=== PATIENT | female | born 1990 | race Two or more races ===

== ENCOUNTER 2020-08-16 11:04 | Outpatient (REF) | payer OTHER, SELFPAY | END 2020-08-16 11:05 | disposition home or self-care (01) | LOC: HO.LAB 11:04 | PROVIDERS: Visit Provider Internal Medicine | DX: Z20.828 Contact with and (suspected) exposure to other viral communicable diseases (principal) | CPT/HCPCS: U0003 ==

== ENCOUNTER 2020-09-16 08:52 | Outpatient (REF) | payer OTHER, SELFPAY | END 2020-09-16 08:53 | disposition home or self-care (01) | LOC: HO.LAB 08:52 | PROVIDERS: Visit Provider Internal Medicine | DX: Z20.828 Contact with and (suspected) exposure to other viral communicable diseases (principal) | CPT/HCPCS: C9803; U0003 ==

== ENCOUNTER 2021-01-15 08:47 | Outpatient (REF) | payer OTHER, SELFPAY ==
[2021-01-15 11:37] LABS: SARS COV2 PCR INHOUSE NEGATIVE (Negative)
== END 2021-01-15 08:48 | disposition home or self-care (01) ==
LOC: HO.LAB 08:47
PROVIDERS: Visit Provider Internal Medicine
DX: Z20.822 Contact with and (suspected) exposure to COVID-19 (principal)
CPT/HCPCS: C9803; U0003

== ENCOUNTER 2022-11-03 12:25 | Outpatient (REF) | payer OTHER, SELFPAY ==
[2022-11-03 12:58] LABS: COVID-19 Test Positive (Negative); IDNOW Serial# 16C4AD1C
== END 2022-11-03 12:26 | disposition home or self-care (01) ==
LOC: HO.LAB 12:25
PROVIDERS: Visit Provider Internal Medicine
DX: Z20.822 Contact with and (suspected) exposure to COVID-19 (principal)
CPT/HCPCS: 87635; C9803

== ENCOUNTER 2023-12-02 07:17 | Emergency (ER) | payer OTHER, MEDICAID, SELFPAY ==
--- NOTE | ~2023-12-02 | XR_ITS ---
EXAMINATION: XR KNEE, LEFT CLINICAL INFORMATION: Pain in left knee following fall COMPARISON: None available. TECHNIQUE: Four views of the left knee. FINDINGS: No fracture or joint effusion. Alignment is anatomic. Joint spaces are maintained. No abnormal soft tissue calcification. Is suprapatellar soft tissue swelling XR/XR knee LT 3V IMPRESSION: No fracture or joint effusion
[2023-12-02 07:21] VITALS: BP 148/96; PULSE 77; RESP 19; TEMP 36.6; O2SAT 100; BMI 29.1
--- NOTE | 2023-12-02 08:33 | ED.LOWEXIN ---
HPI - Extremity Injury (Lower) General Chief Complaint: Extremity Injury, Lower Stated Complaint: Fall - injury left knee Time Seen by Provider: 12/02/23 07:27 Source: patient and family ( father (legal guardian)) Mode of arrival: ambulatory Limitations: no limitations History of Present Illness HPI Narrative: 33-year-old female came in for evaluation of left knee pain. Patient sustained a fall last week in the bathroom started to complain left knee pain, patient was seen and evaluated for left knee and was diagnosed with cellulitis patient was started on Keflex, return for increased pain in the left knee. Patient is a wheelchair-bound ambulate with a walker and assistance only. No fever, no chills, no nausea, no vomiting overall patient feels normal except for left knee pain. Related Data Previous Rx's Medication Instructions Recorded doxycycline hyclate 100 mg tablet 100 mg PO BID #14 tabs 12/02/23 Allergies Allergy/AdvReac Type Severity Reaction Status Date / Time No Known Allergies Allergy Verified 12/02/23 07:21 Review of Systems Review of Systems: All other systems are reviewed and are negative Constitutional: Reports as per HPI and Reports no additional constitutional complaints Eyes: Reports as per HPI and Reports no additional eye complaints Reports system reviewed and no additional complaints, except as documented Cardiovascular: Reports as per HPI and Reports no additional cardiovascular complaints Respiratory: Reports as per HPI and Reports no additional respiratory complaints Gastrointestinal: Reports as per HPI and Reports no additional gastrointestinal complaints Genitourinary: Reports no additional female genitourinary complaints Musculoskeletal: Reports no additional musculoskeletal complaints Skin/Breast: Reports system reviewed and no additional complaints, except as docu Psychiatric: Reports no additional psychiatric complaints Endocrine: Reports no additional endocrine complaints Hematologic/Lymphatic: Reports no additional hematologic/lymphatic complaints Allergic/Immunologic: Reports no additional allergic/immunologic complaints Reports system reviewed and no additional complaints, except as documented and Reports Abnormal speech present [facility] Social History Social History Advance Directives: No Physical Exam Vital Signs: Vital Signs: Last Vital Signs Temp 98 F 12/02/23 07:21 Pulse 77 12/02/23 07:21 Resp 19 12/02/23 07:21 BP 148/96 H 12/02/23 07:21 Pulse Ox 100 12/02/23 07:21 O2 Del Method Room Air 12/02/23 07:21 BMI result Body Mass Index 29.1 Vital signs have been reviewed and appear to be correct. Blood pressure elevated. Heart rate normal. Respiratory rate normal. Temperature normal. Oxygen saturation normal. Appearance: Alert. Oriented X3. No acute distress. Head: Normal external exam. Normocephalic. Atraumatic. No Wasserman signs noted. No raccoon eyes noted Eyes: PERRLA. EOMI. Conjunctiva and sclera normal. Eyelids normal. ENT: TM's Normal. Pharynx normal. Uvula midline. Moist mucous membranes. No trismus noted. No drooling noted. No muffled voice noted. Neck: Normal inspection. Neck supple. FROM. No adenopathy. Thyroid Normal. No meningeal signs. No neck mass noted. CVS: Normal heart rate and rhythm. Heart sound normal. No murmurs noted. Pulses normal throughout. Respiratory: No respiratory distress. Painless inspiration. Breath sounds normal. No wheezes/rales/rhonchi noted. Chest nontender. No accessory muscle usage noted or decreased air movement noted. Abdomen: Soft and nontender. Bowel sounds normal in all 4 quadrants. No distention noted. No organomegaly noted. No visible injury noted. Back: No CVA tenderness. Full range of motion noted. Skin: Skin warm and dry. Normal skin color. Normal skin turgor. No rashes/lesions/lacerations noted. Extremities: Left knee: infrapatellar redness, hotness with tenderness to touch, no step-off, no deformity in the knee, full range of motion of the left knee, neurovascularly intact. Neuro: Oriented X 3. Cranial nerve exam: II-XII are grossly intact No motor deficit. No sensory deficit. Reflexes normal. Course Reevaluation(s) Reevaluation #1: Left knee cellulitis patient has been taking Keflex, normal white count with elevation of sed rate but patient do not meet criteria for SIRS, intra-articular infection is unlikely With a full range of motion of the left knee, will add doxycycline. Time: 09:43 Medical Decision Making Differential Diagnosis Differential Diagnoses: The differential diagnosis associated with the presentation includes ( Left knee cellulitis, intra-articular infection, sepsis.) Lab Data MDM Lab Attestation statement: I reviewed the patient's lab results. 02/15/24 08:40 Labs: Lab Results 12/02/23 Range/Units 08:40 WBC 8.4 (4.8-10.8) X10*3/uL RBC 4.53 (4.20-5.50) X10*6/uL Hgb 13.4 (12.0-16.0) g/dl Hct 39.5 (37.0-47.0) % MCV 87.2 (80.0-98.0) fL MCH 29.6 (27.0-33.0) pg MCHC 33.9 (31.0-35.0) g/dl RDW 13.2 (11.0-16.0) % Plt Count 238 (160-400) X10*3/uL MPV 11.9 (9.4-12.3) fL Immature Gran % (Auto) 0.4 (0.0-0.4) % Neut % (Auto) 69.5 (45-73) % Lymph % (Auto) 21.3 (20-40) % [place] % (Auto) 7.2 (2-11) % Eos % (Auto) 1.2 (0-4) % Baso % (Auto) 0.4 (0-2) % Lymph # (Auto) 1.8 (1.2-4.9) X10*3/uL [place] # (Auto) 0.6 (0.1-1.2) X10*3/uL Eos # (Auto) 0.1 (0.0-0.4) X10*3/uL Baso # (Auto) 0.0 (0.0-0.2) X10*3/uL Abs Immat Gran (auto) 0.03 (0.00-0.03) X10*3/uL Absolute Neuts (auto) 5.9 (2.0-8.3) x10*3/uL Absolute Nucleated RBC 0.000 (0.0-0.012) X10*3/uL Nucleated RBC % (auto) 0.0 (0.0-0.2) /100WBC ESR 63 H (0-20) MM/HR Independent Interpretation I performed an independent interpretation of an: Plain X-Ray ( left knee: No fracture or joint effusion.) Radiology Impression Discussion of test interpretation with radiology: I have reviewed the radiologist's reading. Discharge Plan Discharge Clinical Impression: Cellulitis of knee, left Patient Disposition: Home, Self-Care Instructions: Cellulitis (ED) Prescriptions: New doxycycline hyclate 100 mg tablet 100 mg PO BID Qty: 14 0RF Referrals: Po,Sangita Gomes MD [Primary Care Provider] -
[2023-12-02 08:43] LABS: MANUAL DIFF FLAG NO
[2023-12-02 08:47] LABS: Basophils Percent Auto 0.4 % (0-2); Eosinophils Absolute Auto 0.1 X10*3/uL (0.0-0.4); Eosinophils Percent Auto 1.2 % (0-4); Hematocrit 39.5 % (37.0-47.0); Hemoglobin 13.4 g/dl (12.0-16.0); Imm Gran Abs Auto 0.03 X10*3/uL (0.00-0.03); Imm Gran Pct Auto 0.4 % (0.0-0.4); Lymphocytes Absolute Auto 1.8 X10*3/uL (1.2-4.9); Lymphocytes Percent Auto 21.3 % (20-40); Mean Corpuscular HGB Conc 33.9 g/dl (31.0-35.0); Mean Corpuscular Hemoglobin 29.6 pg (27.0-33.0); Mean Corpuscular Volume 87.2 fL (80.0-98.0); Mean Platelet Volume 11.9 fL (9.4-12.3); Monocytes Absolute Auto 0.6 X10*3/uL (0.1-1.2); Monocytes Percent Auto 7.2 % (2-11); Neutrophils Absolute Auto 5.9 x10*3/uL (2.0-8.3); Neutrophils Percent Auto 69.5 % (45-73); Platelet Count 238 X10*3/uL (160-400); Red Blood Count 4.53 X10*6/uL (4.20-5.50); Red Cell Distribution Width 13.2 % (11.0-16.0); White Blood Count 8.4 X10*3/uL (4.8-10.8)
[2023-12-02 09:41] LABS: Erythrocyte Sedimentation Rate 63 MM/HR (0-20)
== END 2023-12-02 10:01 | disposition home or self-care (01) ==
PROVIDERS: Emergency Provider Emergency Medicine; PCP Internal Medicine
DX: L03.116 Cellulitis of left lower limb (principal); M25.562 Pain in left knee
CPT/HCPCS: 36415; 73562; 85025; 85652; 99282; 99283

== ENCOUNTER 2024-01-11 10:21 | Outpatient (AMB) | payer OTHER, SELFPAY ==
[2024-01-11 10:27] VITALS: BP 124/68; PULSE 58; O2SAT 98; BMI 30.8
--- NOTE | 2024-01-11 10:27 | MHC.PC.OV ---
Vital Signs 01/11/24 10:27 Height 4 ft 8 in Weight 137 lb 9.095 oz BMI 30.8 BP 124/68 Blood Pressure Location Lt brachial Position Sitting Pulse 58 Pulse Source Pulse Oximeter Pulse Oximetry (%) 98 Oxygen Delivery Method Room Air Intake Visit Reasons: New patient-Seizures [employer] Professor Required: No Allergies No Known Allergies Allergy (Verified 01/11/24 10:28) Medication List - Last Reconciled 01/11/24 by Sangita Abdi MD lorazepam 0.25 mg PO .QD PRN Tobacco use date assessed: 01/11/24 Dental Screening Dental Screen Date: 01/11/24 Did you have a dental visit in the last 12 months?: Yes Did you have a dental problem in the last 6 months where you did not have access to dental care?: No Was dental information given to patient?: Patient has dentist HPI New patient-Seizures HPI Details 33-year-old obese female being seen for the 1st time a noted ER visit in November for a fall in the bathtub having swelling of the left knee and ER treated with antibiotics doxycycline and cephalexin. Patient is left knee is better x-ray done negative. PFSH Medical History (Updated 01/11/24 @ 10:51 by Sangita Abdi MD) Meningitis COVID-19 virus infection Surgical History (Updated 01/11/24 @ 10:47 by Sangita Abdi MD) Hx laparoscopic cholecystectomy Family History (Updated 01/11/24 @ 10:49 by Sangita Abdi MD) Maternal Grandfather Lung cancer Paternal Grandfather CVA (cerebral vascular accident) Social History (Updated 01/11/24 @ 10:50 by Sangita Abdi MD) Housing: House Patient Tobacco Use Status: Never used Tobacco service: No Current occupational status: disabled Cognitive needs: Yes (wheelchair ) Hearing needs: No Vision needs: No Questionnaire PHQ-9 Over the last 2 weeks, how often have you been bothered by any of the following problems? 1. Little interest or pleasure in doing things: not at all 2. Feeling down, depressed, or hopeless: not at all 3. Trouble falling or staying asleep, or sleeping too much: not at all 4. Feeling tired or having little energy: not at all 5. Poor appetite or overeating: not at all 6. Feeling bad about yourself - or that you are a failure or have let yourself or your family down: not at all 7. Trouble concentrating on things, such as reading the newspaper or watching television: not at all 8. Moving or speaking so slowly that other people could have noticed. Or the opposite - being so fidgety or restless that you have been moving around a lot more than usual: not at all 9. Thoughts that you would be better off or of hurting yourself in some way: not at all Total score: 0 Depression Screening Interpretation: Negative Depression Screening Done: Yes Source: Developed by Drs. Venkat Tijerina, Eloise Blanton, Vicente Acosta and colleagues, with an educational daily from [employer]. Thrive Questionnaire Date Thrive assessed: 01/11/24 I am a: Parent/Caregiver What is your living situation today?: I have a steady place to live Within the past 12 months, did the food you bought not last and you didn't have the money to get more?: Never true Within the past 12 months, did you worry whether your food would run out before you got money to buy more?: Never true Do you have trouble paying for medicines?: No Do you have trouble getting transportation to medical appointments?: No Do you have trouble paying your heating and electricity bill?: No Do you have trouble taking care of your child, family member or friend?: No Do you have trouble with day-to-day activities such as bathing, preparing meals, shopping, managing finances, etc.?: No Are you currently unemployed and looking for a job?: No Are you interested in more education?: No Please select the resources that you would like help with: None THRIVE Score: 0 AUDIT C Alcohol Use Questionnaire (AUDIT-C) 1. How often do you have a drink containing alcohol?: Never 3. How often do you have six or more drinks on one occasion?: Never Total Score: 0 KATHRYN-7 AMB Questionnaire KATHRYN-7 Date KATHRYN - 7 assessed: 01/11/24 Feeling nervous, anxious, or on edge: 0 = Not at all Not being able to stop or control worryin = Not at all Worrying too much about different things: 0 = Not at all Trouble relaxin = Not at all Being so restless that it is hard to sit still: 0 = Not at all Becoming easily annoyed or irritable: 0 = Not at all Feeling afraid as if something awful might happen: 0 = Not at all Total KATHRYN-7 score (0-4 normal; 5-9 mild; 10-14 moderate; 15-21 severe): 0 Source: Developed by Drs. Venkat Tijerina, Eloise Blanton, Vicente Acosta and colleagues, with an educational daily from [employer]. Physical exam (Primary Care) Vital Signs: Oxygen Delivery Method Room Air 01/11/24 10:27 BMI result Body Mass Index 30.8 Tobacco/Smoking Status: Tobacco use Status Tobacco use date assessed 01/11/24 01/11/24 10:33 Patient Tobacco Use Status Never used Tobacco 01/11/24 10:33 Depression Screening Interpretation: Negative Const General: alert; No acute distress Eyes Conjunctivae: conjunctivae normal Resp Auscultation: clear to auscultation bilaterally Cardio Rate: regular rate Rhythm: regular rhythm GI Inspection: Yes normal to inspection Extrem General: Yes normal to inspection and No edema Assessment and Plan Assessment & Plan (1) Obesity (BMI 30-39.9): Code(s): E66.9 - Obesity, unspecified Plan: Keep active eat healthy in keep well hydrated (2) Grand mal seizure: Code(s): G40.409 - Other generalized epilepsy and epileptic syndromes, not intractable, without status epilepticus Plan: Patient is referred to Neurology. Lorazepam p.r.n. 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 - Valgus deformity, not elsewhere classified, unspecified ankle Plan: Will sent for physical therapy for more stability and walking (5) Cognitive disorder: Code(s): F09 - Unspecified mental disorder due to known physiological condition Plan: Supportive treatment (6) Urinary incontinence: Code(s): R32 - Unspecified urinary incontinence Plan: Supportive treatment (7) Rectal incontinence: Code(s): R15.9 - Full incontinence of feces Plan: Supportive treatment (8) Legally blind: Comment: Jose eye Code(s): H54.8 - Legal blindness, as defined in [place] Plan: Supportive treatment Orders: Orders Complete Blood Count Auto Diff Today G40.409 - Other generalized epilepsy and epileptic syndromes, not intractable, without status epilepticus Thyroid Stimulating Hormone Today G40.409 - Other generalized epilepsy and epileptic syndromes, not intractable, without status epilepticus Vitamin D 25-OH Total Today G40.409 - Other generalized epilepsy and epileptic syndromes, not intractable, without status epilepticus Lipid Panel Today E78.00 - Pure hypercholesterolemia, unspecified, G40.409 - Other generalized epilepsy and epileptic syndromes, not intractable, without status epilepticus PT Evaluation and Treatment Today M21.079 - Valgus deformity, not elsewhere classified, unspecified ankle Comprehensive Met. Panel Today G40.409 - Other generalized epilepsy and epileptic syndromes, not intractable, without status epilepticus Free T4 (Free Thyroxine) Today G40.409 - Other generalized epilepsy and epileptic syndromes, not intractable, without status epilepticus Vitamin B12 and Folate Today G40.409 - Other generalized epilepsy and epileptic syndromes, not intractable, without status epilepticus Referrals Neurology Referral G40.409 - Other generalized epilepsy and epileptic syndromes, not intractable, without status epilepticus Dermatology Referral L21.9 - Seborrheic dermatitis, unspecified Medications: New ketoconazole 2% 1 appl topical 2XW 120 mL 0RF L21.9 - Seborrheic dermatitis, unspecified clobetasol 0.05% 1 appl topical DAILY 1 week 118 mL 0RF L21.9 - Seborrheic dermatitis, unspecified Coding Level of Care Code New Pt Level 5 (84153) Diagnoses Obesity (BMI 30-39.9) E66.9 Grand mal seizure G40.409 Seborrheic dermatitis L21.9 Valgus deformity of foot M21.079 Cognitive disorder F09 Urinary incontinence R32 Rectal incontinence R15.9 Legally blind H54.8
== END 2024-01-11 11:10 | disposition home or self-care (01) ==
PROVIDERS: PCP Internal Medicine; Visit Provider Internal Medicine
DX: G40.409 Other generalized epilepsy and epileptic syndromes, not intractable, without status epilepticus (principal); E66.9 Obesity, unspecified; L21.9 Seborrheic dermatitis, unspecified; Z68.30 Body mass index [BMI] 30.0-30.9, adult; M21.079 Valgus deformity, not elsewhere classified, unspecified ankle; F09 Unspecified mental disorder due to known physiological condition; R32 Unspecified urinary incontinence; R15.9 Full incontinence of feces; H54.8 Legal blindness, as defined in USA
CPT/HCPCS: 99204

== ENCOUNTER 2024-01-15 07:16 | Outpatient (REF) | payer OTHER, MEDICAID, SELFPAY ==
[2024-01-15 07:38] LABS: MANUAL DIFF FLAG NO
[2024-01-15 08:19] LABS: Basophils Percent Auto 0.6 % (0-2); Eosinophils Absolute Auto 0.1 X10*3/uL (0.0-0.4); Eosinophils Percent Auto 1.7 % (0-4); Hematocrit 42.9 % (37.0-47.0); Hemoglobin 14.1 g/dl (12.0-16.0); Imm Gran Abs Auto 0.02 X10*3/uL (0.00-0.03); Imm Gran Pct Auto 0.4 % (0.0-0.4); Lymphocytes Absolute Auto 1.9 X10*3/uL (1.2-4.9); Lymphocytes Percent Auto 36.1 % (20-40); Mean Corpuscular HGB Conc 32.9 g/dl (31.0-35.0); Mean Corpuscular Hemoglobin 28.5 pg (27.0-33.0); Mean Corpuscular Volume 86.8 fL (80.0-98.0); Mean Platelet Volume 12.1 fL (9.4-12.3); Monocytes Absolute Auto 0.3 X10*3/uL (0.1-1.2); Monocytes Percent Auto 6.1 % (2-11); Neutrophils Absolute Auto 2.9 x10*3/uL (2.0-8.3); Neutrophils Percent Auto 55.1 % (45-73); Platelet Count 219 X10*3/uL (160-400); Red Blood Count 4.94 X10*6/uL (4.20-5.50); Red Cell Distribution Width 13.2 % (11.0-16.0); White Blood Count 5.2 X10*3/uL (4.8-10.8)
[2024-01-15 08:47] LABS: Alanine Aminotransferase 32 U/L (0-31); Albumin Level 3.9 g/dL (3.5-5.0); Alkaline Phosphatase 113 U/L (39-117); Anion Gap 9 (12-20); Aspartate Amino Transferase 24 U/L (5-31); Bilirubin Total 0.3 mg/dL (0.0-1.0); Blood Urea Nitrogen 15 mg/dL (9-16); Calcium 9.7 mg/dL (8.4-10.2); Carbon Dioxide 26 mmol/L (22-29); Chloride 107 mmol/L (96-108); Cholesterol 210 mg/dL (<200); Estimated Glomerular Filt Rate > 60; Glucose Random 73 mg/dL (60-115); HDL Cholesterol 58 mg/dL (>40); LDL Cholesterol Calculated 122 mg/dL (<100); Potassium 4.3 mmol/L (3.3-5.1); Sodium 138 mmol/L (135-145); Total Protein 7.8 g/dL (6.5-8.0); Triglycerides 152 mg/dL (<150)
[2024-01-15 09:06] LABS: Free T4 (Free Thyroxine) 1.11 ng/dL (0.71-1.85); Thyroid Stimulating Hormone 2.46 uIU/mL (0.32-4.0); Vitamin D 25-OH Total 27.6 ng/mL (>30)
[2024-01-15 09:37] LABS: Folate 6.6 ng/mL (> or = 4.0); Vitamin B12 569 pg/mL (200-900)
== END 2024-01-15 07:17 | disposition home or self-care (01) ==
LOC: HO.LAB 07:16
PROVIDERS: PCP Internal Medicine; Visit Provider Internal Medicine
DX: G40.409 Other generalized epilepsy and epileptic syndromes, not intractable, without status epilepticus (principal); E78.00 Pure hypercholesterolemia, unspecified
CPT/HCPCS: 36415; 80053; 80061; 82306; 82607; 82746; 84439; 84443; 85025

== ENCOUNTER 2024-03-08 09:00 | Outpatient (RCR) | payer OTHER, MEDICAID, SELFPAY ==
--- NOTE | 2024-02-10 12:57 | MHC.PT.EP ---
[facility] [place] Office [place] Office [place] Office [address] Alfonso Mendez [address] [phone] F: [phone] F: [phone] F: [phone] F: [phone] Physical Therapy Plan of Care Date of Evaluation: 02/10/24 Date of Surgery: Diagnosis: valgus deformity of foot Assessment: 33 y/o female referred to PT with valgus deformity L foot. Of note, pt with PMH of meningitis as a resulting in gross motor deficits and poor cognition (cognitive age 8 y/o per father). She also has PMH significant epilepsy,and severely impaired balance/ fall risk. Her father gives the history. Father reports she needs assistance from mom/dad for walking (has a walker but crawls in the house), standing, grooming, and bathing. She goes to day program everyday from 9-3. Examination shows severely impaired static standing balance (retropulsive instantly and no protective/ reactive movement boted), max A for gait with impaired gait pattern, valgus deformity of B foot (L >R), mod A bed mobility, and impaired coordination. Recommend PT 1x/week for 4 weeks to implement strengthening program (mat exercises), trial balance and gait program and education for family. Limitations to progress include brain injury from resulting in poor cognition, poor carryover, impaired coordination and balance as well as valgus deformity. Frequency and Duration: The patient will be seen 1x/week for 4 weeks Short Term Goals: 2 weeks Family will be I with HEP Jail Goals: 4 weeks Family with be I with HEp and self management Pt will be spv supine to sit Pt will be able to stand with mod A x 1 min without LOB Treatment Plan: Modalities to reduce pain, spasms and effusion. Manual therapy to restore motion and function. Therapeutic exercise to improve strength and flexibility. Neuromuscular re-education for posture and balance. Therapeutic activities to return to functional activities of daily living. Electronically signed by: Alfreda Sykes PT Please sign and return to therapist. Thank you for your referral.
--- NOTE | 2024-03-16 11:24 | MHC.PT.DC ---
[facility] [place] Office [place] Office [place] Office [address] Alfonso Mendez [address] [phone] F: [phone] F: [phone] F: [phone] F: [phone] Physical Therapy Discharge Report Diagnosis: valgus deformity of foot Date of Surgery: Date of Evaluation: 02/10/24 Date of Discharge: 03/16/24 Treatments to Date: 4 Cancellations to Date: 0 No Shows to Date: 0 Discharge Status: Achieved Goals Improved Function Independent with HEP Discharge Summary: Pt has met goals at this time and family is I with HEP. Pt requires UE support for standing d/t poor proprioceptive awareness without feedback and reviewed this with family. Given updated standing exercise program for day program use. D/c to I HEP at this time and family in agreement Electronically signed by: Alfreda Sykes PT Please sign and return to therapist. Thank you for your referral.
== END 2024-03-16 11:24 | disposition home or self-care (01) ==
LOC: HO.PT 09:00
PROVIDERS: PCP Internal Medicine; Visit Provider Internal Medicine
DX: M21.072 Valgus deformity, not elsewhere classified, left ankle (principal)
CPT/HCPCS: 97110; 97112; 97163

== ENCOUNTER 2024-05-12 13:39 | Outpatient (AMB) | payer OTHER, MEDICAID, SELFPAY ==
[2024-05-12 13:48] VITALS: BP 126/68; PULSE 64; O2SAT 100; BMI 32.7
--- NOTE | 2024-05-12 13:48 | A.OFFPC_ITS ---
Vital Signs 05/12/24 13:48 Height 4 ft 8 in Weight 145 lb 11.609 oz BMI 32.7 BP 126/68 Blood Pressure Location Lt brachial Position Sitting Pulse 64 Pulse Source Pulse Oximeter Pulse Oximetry (%) 100 Oxygen Delivery Method Room Air Intake Visit Reasons: Annual exam Intake Note: Patient is here today for a physical. 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: No Allergies No Known Allergies Allergy (Verified 05/12/24 13:48) Medication List - Last Reconciled 05/12/24 by Sangita Abdi MD clobetasol 0.05% 1 appl topical DAILY 1 week ketoconazole 2% 1 appl topical 2XW lorazepam 0.25 mg PO .QD PRN Tobacco use date assessed: 01/11/24 Dental Screening Dental Screen Date: 05/12/24 Did you have a dental visit in the last 12 months?: Yes Did you have a dental problem in the last 6 months where you did not have access to dental care?: No Was dental information given to patient?: Patient has dentist HPI Annual exam HPI Details 34-year-old obese female with a history of seizures cognitive disorder legally blind with urinary and rectal incontinence coming in for physical exam last seen in December 2023. [facility] Medical History (Updated 05/12/24 @ 14:11 by Sangita Abdi MD) Meningitis COVID-19 virus infection Surgical History (Updated 01/11/24 @ 10:47 by Sangita Abdi MD) Hx laparoscopic cholecystectomy Family History (Updated 01/11/24 @ 10:49 by Sangita Abdi MD) Maternal Grandfather Lung cancer Paternal Grandfather CVA (cerebral vascular accident) Social History (Updated 05/12/24 @ 14:15 by Sangita Abdi MD) Housing: House Alcohol intake: never Patient Tobacco Use Status: Never used Tobacco service: No Current occupational status: disabled Cognitive needs: Yes (wheelchair ) Hearing needs: No Vision needs: No Questionnaire PHQ-9 Over the last 2 weeks, how often have you been bothered by any of the following problems? 1. Little interest or pleasure in doing things: not at all 2. Feeling down, depressed, or hopeless: not at all 3. Trouble falling or staying asleep, or sleeping too much: not at all 4. Feeling tired or having little energy: not at all 5. Poor appetite or overeating: not at all 6. Feeling bad about yourself - or that you are a failure or have let yourself or your family down: not at all 7. Trouble concentrating on things, such as reading the newspaper or watching television: not at all 8. Moving or speaking so slowly that other people could have noticed. Or the opposite - being so fidgety or restless that you have been moving around a lot more than usual: not at all 9. Thoughts that you would be better off or of hurting yourself in some way: not at all Total score: 0 Depression Screening Interpretation: Negative Depression Screening Done: Yes Source: Developed by Drs. Venkat Tijerina, Eloise Blanton, Vicente Acosta and colleagues, with an educational daily from [employer]. Thrive Questionnaire Date Thrive assessed: 01/11/24 I am a: Parent/Caregiver What is your living situation today?: I have a steady place to live Within the past 12 months, did the food you bought not last and you didn't have the money to get more?: Never true Within the past 12 months, did you worry whether your food would run out before you got money to buy more?: Never true Do you have trouble paying for medicines?: No Do you have trouble getting transportation to medical appointments?: No Do you have trouble paying your heating and electricity bill?: No Do you have trouble taking care of your child, family member or friend?: No Do you have trouble with day-to-day activities such as bathing, preparing meals, shopping, managing finances, etc.?: No Are you currently unemployed and looking for a job?: No Are you interested in more education?: No Please select the resources that you would like help with: None THRIVE Score: 0 AUDIT C Alcohol Use Questionnaire (AUDIT-C) 1. How often do you have a drink containing alcohol?: Never 3. How often do you have six or more drinks on one occasion?: Never Total Score: 0 KATHRYN-7 AMB Questionnaire KATHRYN-7 Date KATHRYN - 7 assessed: 05/12/24 Feeling nervous, anxious, or on edge: 0 = Not at all Not being able to stop or control worryin = Not at all Worrying too much about different things: 0 = Not at all Trouble relaxin = Not at all Being so restless that it is hard to sit still: 0 = Not at all Becoming easily annoyed or irritable: 0 = Not at all Feeling afraid as if something awful might happen: 0 = Not at all Total KATHRYN-7 score (0-4 normal; 5-9 mild; 10-14 moderate; 15-21 severe): 0 Source: Developed by Drs. Venkat Tijerina, Eloise Blanton, Vicente Acosta and colleagues, with an educational daily from [employer]. Review of Systems Const Denies poor appetite and Denies weakness Eyes Denies no additional complaints ENT Reports Normal hearing present, Denies dizziness, Denies nasal congestion, Denies tinnitus and Denies sore throat Card Denies chest pain, Denies syncope, Denies rapid heart rate and Denies dyspnea Resp Denies cough and Denies dyspnea GI Denies change in stool character, Reports constipation, Denies diarrhea, Denies nausea and Denies vomiting Denies urinary frequency, Denies difficulty voiding and Denies dysuria Neuro Reports Normal hearing present, Denies confusion, Denies dizziness, Denies syncope and Denies weakness Psych Denies confusion Physical exam (Primary Care) Vital Signs: Last Vital Signs Pulse 64 05/12/24 13:48 BP 126/68 05/12/24 13:48 Pulse Ox 100 05/12/24 13:48 Oxygen Delivery Method Room Air 05/12/24 13:48 BMI result Body Mass Index 32.7 Tobacco/Smoking Status: Tobacco use Status Tobacco use date assessed 01/11/24 05/12/24 13:49 Patient Tobacco Use Status Never used Tobacco 05/12/24 13:49 PHQ-9: PHQ-9 Score PHQ-9: Total score 0 05/12/24 13:55 Depression Screening Interpretation: Negative Thrive Assessment: Date of Thrive Assessment Date Thrive assessed 01/11/24 05/12/24 13:49 Const General: No confusion Orientation/consciousness: No confusion HENMT Head: Yes normocephalic Ears: external ears normal and TM's normal bilaterally Face and sinus: Yes normal facial exam Mouth: moist mucous membranes Throat: Yes tonsils normal Eyes Conjunctivae: conjunctivae normal Pupils: Equal, round and reactive pupils present and Pupil accommodation reflex normal Direct Ophthalmoscopy: normal light reflex Neck Neck: No lymphadenopathy Thyroid: Thyroid normal Chest Chest palpation & inspection: normal inspection of the chest Resp Effort & Inspection: normal respiratory effort and no audible wheezes Auscultation: clear to auscultation bilaterally, no crackles, no wheezes and lung sounds not diminished Cardio Rate: regular rate Rhythm: regular rhythm Peripheral pulses: radial pulses present and dorsalis pedis present GI Palpation (GI): no masses Auscultation: normal bowel sounds and normoactive bowel sounds Rectal Exam - Female: deferred Skin General skin exam: no rashes or lesions noted Rashes: no rashes Neuro General: No confusion Cranial nerves: Yes Equal, round and reactive pupils present and Yes Normal hearing present Cognition (Neuro): normal cognition Gait exam (Neuro): Normal gait present Motor exam (neuro): 5/5 motor strength present throughout Deep tendon reflexes (DTR's): Right brachioradialis reflex intensity grade: 2+, Left brachioradialis reflex intensity grade: 2+, Right patellar reflex intensity grade: 2+ and Left patellar reflex intensity grade: 2+ Extrem Other: bilateral feet - cannot dosiflex Assessment and Plan Assessment & Plan (1) Annual physical exam: Code(s): Z00.00 - Encounter for general adult medical examination without abnormal findings Plan: Patient is advised to eat healthy, keep well hydrated, keep active and have adequate sleep. Declined vaccination (2) Obesity (BMI 30-39.9): Code(s): E66.9 - Obesity, unspecified Plan: Diet and exercise, referral to air brake adjuster (3) Grand mal seizure: Code(s): G40.409 - Other generalized epilepsy and epileptic syndromes, not intractable, without status epilepticus Plan: Patient will be seeing Neurology (4) Valgus deformity of foot: Code(s): M21.079 - Valgus deformity, not elsewhere classified, unspecified ankle Plan: Continue with exercises (5) Cognitive disorder: Code(s): F09 - Unspecified mental disorder due to known physiological condition Plan: Supportive manage (6) Seborrheic dermatitis: Code(s): L21.9 - Seborrheic dermatitis, unspecified Plan: will be seeing dermatology in June Orders: Referrals Nutrition/Dietitian Referral E66.9 - Obesity, unspecified Coding Level of Care Code Est Pt Prev Care 18-39y(50304) Diagnoses Annual physical exam Z00.00 Obesity (BMI 30-39.9) E66.9 Grand mal seizure G40.409 Valgus deformity of foot M21.079 Cognitive disorder F09 Seborrheic dermatitis L21.9
== END 2024-05-12 14:31 | disposition home or self-care (01) ==
PROVIDERS: PCP Internal Medicine; Visit Provider Internal Medicine
DX: Z00.00 Encounter for general adult medical examination without abnormal findings (principal); G40.409 Other generalized epilepsy and epileptic syndromes, not intractable, without status epilepticus; M21.079 Valgus deformity, not elsewhere classified, unspecified ankle; L21.9 Seborrheic dermatitis, unspecified; F09 Unspecified mental disorder due to known physiological condition
CPT/HCPCS: 99395

== ENCOUNTER 2024-06-15 12:16 | Outpatient (AMB) | payer OTHER, MEDICAID, SELFPAY ==
--- NOTE | 2024-06-15 12:30 | A.OFFVIS_ITS ---
VS Expanded 06/15/24 12:32 06/15/24 13:37 Height 4 ft 8 in 4 ft 8 in Weight 141 lb 5.061 oz 141 lb BMI 31.7 31.6 Intake Visit Reasons: Obesity/CONFIRMED Allergies No Known Allergies Allergy (Verified 05/12/24 13:48) Nutrition Presentation Details: Pt presents for MNT for obesity. Pt was referred by PCP, Dr. Abdi Pt presents with dad during this appt. Pt had meningitis as a child , has cognitive disorders and is legally blind Pt's father reports that since PCP visit the mother has been working on reducing portion sizes and reducing on some snacks, noted 4 lbs weight loss in 1 month Typical meal intake B:Oatmeal with walnuts/banana or whole wheat and scrambled eggs and cheese L: salad with rice/beans, chicken, water dinner: salad with rice/beans , water Physical activity: uses wheelchair (walks with assistance, at home spends time on the floor , crawls and does stretches with mom's assistance) smoking/etoh- denies BS Monitoring Most Recent Diabetes Results: Cholesterol 210 mg/dL (<200) H 01/15/24 HDL Cholesterol 58 mg/dL (>40) 01/15/24 Triglycerides 152 mg/dL (<150) H 01/15/24 Creatinine 0.65 mg/dL (0.5-1.4) 01/15/24 Blood Urea Nitrogen 15 mg/dL (9-16) 01/15/24 Sodium 138 mmol/L (135-145) 01/15/24 Potassium 4.3 mmol/L (3.3-5.1) 01/15/24 Chloride 107 mmol/L (96-108) 01/15/24 Carbon Dioxide 26 mmol/L (22-29) 01/15/24 Calcium 9.7 mg/dL (8.4-10.2) 01/15/24 AST 24 U/L (5-31) 01/15/24 ALT 32 U/L (0-31) H 01/15/24 Total Protein 7.8 g/dL (6.5-8.0) 01/15/24 Albumin 3.9 g/dL (3.5-5.0) 01/15/24 VAF-Caqwdrx-Py.Jeor Equation Height: 4 ft 8 in Weight: 141 lb Resting Metabolic Rate: 1199.65 Calculated Activity Level: Sedentary Calories Needed to Maintain Weight: 1439.58 Diagnosis Nutrition problem #1: overweight/obesity As related to (etiology) #1: diagnosis As evidenced by (sign/symptom) #1: high BMI (31.7 on 05/2024) Monitoring/Goals Nutrition problem monitoring: weight PFSH Medical History (Updated 05/12/24 @ 14:11 by Sangita Abdi MD) Meningitis COVID-19 virus infection Surgical History (Updated 01/11/24 @ 10:47 by Sangita Abdi MD) Hx laparoscopic cholecystectomy Family History (Updated 01/11/24 @ 10:49 by Sangita Abdi MD) Maternal Grandfather Lung cancer Paternal Grandfather CVA (cerebral vascular accident) Social History (Updated 05/12/24 @ 14:15 by Sangita Abdi MD) Housing: House Alcohol intake: never Patient Tobacco Use Status: Never used Tobacco service: No Current occupational status: disabled Cognitive needs: Yes (wheelchair ) Hearing needs: No Vision needs: No Assessment & Plan Assessment & Plan (1) Obesity (BMI 30-39.9): Code(s): E66.9 - Obesity, unspecified Category: Medical Plan: Wt: 64 Kg ( 06/10 ) Est kcal needs as per MSJ: 1400 (40% carb, 30% protein/fat) Est fluid needs as per 25-30 ml/d: 1600 Est prot per day as per 1 g/kg bw: 64 Recommend fiber intake : 8-10 g per day and gradually increase to 25-28 g per day for women and 35-38 g for men or as tolerated Recommend sodium intake per day : less than 2000 mg Educated patient on: ( R = reviewed V = verbalizes understanding N/R = needs review N/A = not applicable * Food sources of carbohydrate, adequate serving sizes and its role in various health conditions: R V N/R * Differences between complex carbohydrates a simple carbohydrates, role of fiber in diet: R V N/R * Lean protein sources of foods: R V NR * Differences between types of fats and role in diet (mono on saturated fat fatty acids, saturated fatty acids, trans fats): R * Food sources of sodium in salt and healthy modifications for heart health in kidney health: R V R/V * Reduction: R * Vitamins and minerals: R V N/R * Healthy plate method concept: R * Physical activity: Benefits a precaution: R Patient Instructions: Have water with meals, reducing on sugars from beverages Reduce on high fat/cholesterol : pastries, dessert and similar foods, amount of beef/pork/cheese, include fish at least twice a week, see chol lowering concepts- NCP education material Coding Level of Care Code Nutr Indiv Intake (10935) Diagnoses Obesity (BMI 30-39.9) E66.9 Time Spent (min) 30
[2024-06-15 12:32] VITALS: BMI 31.7
[2024-06-15 13:37] VITALS: BMI 31.6
== END 2024-06-15 13:11 | disposition home or self-care (01) ==
PROVIDERS: PCP Internal Medicine; Visit Provider Dietitian, Registered
DX: E66.9 Obesity, unspecified (principal)

== ENCOUNTER → 2024-06-15 12:16 | Outpatient (BNVA) | payer OTHER, MEDICAID, SELFPAY | PROVIDERS: PCP Internal Medicine; Visit Provider Dietitian, Registered | DX: E66.9 Obesity, unspecified (principal); Z68.31 Body mass index [BMI] 31.0-31.9, adult; Z71.3 Dietary counseling and surveillance | CPT/HCPCS: 97802 ==

== ENCOUNTER 2024-06-21 10:49 | Outpatient (AMB) | payer OTHER, MEDICAID, SELFPAY ==
--- NOTE | 2024-06-21 10:58 | MHC.OFFVIS ---
Vital Signs 06/21/24 10:59 Height 4 ft 8 in Weight 141 lb BMI 31.6 BP 122/68 Blood Pressure Location Rt brachial Position Sitting Respiration 16 Pulse 68 Pulse Source Pulse Oximeter Pulse Oximetry (%) 97 Oxygen Delivery Method Room Air Intake Visit Reasons: INP-Other generalized epilepsy Intake Note: Pt presents to the office for new pt consultation for generalized epilepsy. 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 she is accompanied by her parents who are caregivers. 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 she has psychomotor delay- still needs assistance to walk, speech delay , she can communicate .she cannot read or write. she went to a special program. she can eat , can communicates with family members , she is social, needs help with showers, dressing and most ADLs. she denies behavior issues- according to her mother- she is like a16 year old she is legally blind and has strabismus she is incontinent.. she uses her tablet, loves music, plays legos, watches you tube, like to play with baby dolls, cars etc. She started having seizures in 1999- generalized tonic clonic seizures. Triggers - include menstrual periods, playing video games, bright sun etc. Her frequency is from 1-9 a year since then Her last seizure was May 2024. she uses lorazepam PRN.The mother declined any other antiepileptics in the past. [facility] Medical History (Updated 06/21/24 @ 11:43 by Nadya Markham MD) Developmental delay, moderate Meningitis COVID-19 virus infection Surgical History Hx laparoscopic cholecystectomy Family History Maternal Grandfather Lung cancer Paternal Grandfather CVA (cerebral vascular accident) Social History Housing: House Alcohol intake: never Patient Tobacco Use Status: Never used Tobacco service: No Current occupational status: disabled Cognitive needs: Yes (wheelchair ) Hearing needs: No Vision needs: No Physical Exam Vital Signs: Last Vital Signs Pulse 68 06/21/24 10:59 Resp 16 06/21/24 10:59 BP 122/68 06/21/24 10:59 Pulse Ox 97 06/21/24 10:59 Oxygen Delivery Method Room Air 06/21/24 10:59 BMI result Body Mass Index 31.6 Const General: cooperative and comfortable Nutritional Appearance: overweight Orientation/consciousness: oriented to person Neuro Other: follows 1-2 step commands EOM- strabismus Face symmetrical Fine finger coordination - decreased , mild athetotic movements Angelo feet turned inwards with decreased tone Power- 3/5 LE UE 4/5 Gait- unable to walk General: oriented to person, tone normal and moves all extremities Deep tendon reflexes (DTR's): Right triceps reflex intensity grade: 1+, Left triceps reflex intensity grade: 1+, Rt Biceps (C5, C6): 1+, Left biceps reflex intensity grade: 1+, Right brachioradialis reflex intensity grade: 1+ and Left brachioradialis reflex intensity grade: 1+ Assessment & Plan Assessment & Plan (1) Grand mal seizure: Code(s): G40.409 - Other generalized epilepsy and epileptic syndromes, not intractable, without status epilepticus Category: Medical 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
[2024-06-21 10:59] VITALS: BP 122/68; PULSE 68; RESP 16; O2SAT 97; BMI 31.6
== END 2024-06-21 11:47 | disposition home or self-care (01) ==
PROVIDERS: PCP Internal Medicine; Referring Provider Internal Medicine; Visit Provider Psychiatry & Neurology Neurology
DX: G40.409 Other generalized epilepsy and epileptic syndromes, not intractable, without status epilepticus (principal); R62.50 Unspecified lack of expected normal physiological development in childhood
CPT/HCPCS: 99204

== ENCOUNTER → 2024-06-21 10:49 | Outpatient (BNVA) | payer OTHER, MEDICAID, SELFPAY | PROVIDERS: PCP Internal Medicine; Visit Provider Psychiatry & Neurology Neurology ==

== ENCOUNTER 2024-07-27 07:56 | Outpatient (REF) | payer OTHER, MEDICAID, SELFPAY ==
--- NOTE | 2024-07-27 09:33 | EEG_ITS ---
FINDINGS: Waking background activity consists of a moderate voltage, diffuse 5 to 6 hertz theta intermixed with eye movement and muscle artifacts. Bifrontal paroxysmal delta discharges are seen and occasional right central sharp transients. Hyperventilation and photic stimulation are omitted. IMPRESSION: This EEG correlates slowing related to a diffuse encephalopathic process and shows some paroxysmal features with bifrontal paroxysmal delta and occasional lateralization of sharp waves in the right central region, which could correlate with the seizure disorder. Clinical correlation is suggested. MD ELIJAH Harley/JOSE MANUEL / [id number]
== END 2024-07-27 07:57 | disposition home or self-care (01) ==
LOC: HO.NEURO 07:56
PROVIDERS: PCP Internal Medicine; Visit Provider Psychiatry & Neurology Neurology
DX: G40.409 Other generalized epilepsy and epileptic syndromes, not intractable, without status epilepticus (principal); G40.909 Epilepsy, unspecified, not intractable, without status epilepticus
CPT/HCPCS: 95816

== ENCOUNTER 2024-10-27 10:58 | Outpatient (AMB) | payer OTHER, MEDICAID, SELFPAY ==
--- NOTE | 2024-10-27 10:59 | A.OFFPC_ITS ---
Vital Signs 10/27/24 11:03 Height 4 ft 8 in Weight 136 lb 14.513 oz BMI 30.7 BP 110/72 Blood Pressure Location Lt brachial Position Sitting Pulse 60 Pulse Source Pulse Oximeter Pulse Oximetry (%) 98 Oxygen Delivery Method Room Air Intake Visit Reasons: follow up Yardage Control Clerk Required: No Accompanied by: Self / Same As Patient Allergies No Known Allergies Allergy (Verified 10/27/24 11:00) Tobacco use date assessed: 10/27/24 Dental Screening Dental Screen Date: 10/27/24 HPI follow up HPI Details The patient is a 34-year-old female presenting with a history of seizure disorder. The patient reportedly had five seizures during the last year. An Electroencephalogram (EEG) showed some slowing in cerebral electrical activity, which correlates with her seizure history. Previous discussions with neurology have suggested the need for consideration of anti-seizure medication to stabilize the condition, although there is hesitance to initiate medication at this point. The seizures are believed to occur due to inadequate cerebral blood supply, and stabilization is crucial to prevent frequent episodes. The patient's current management includes lorazepam, which is taken as needed for muscle relaxation. Additionally, the patient experiences scalp dermatitis, for which a special shampoo was previously recommended. There is also a complaint of an unspecified skin lesion on the chin, likely due to scratching, which may exacerbate skin irritation. The patient has also experienced weight loss recently, which is being monitored. [facility] Medical History (Updated 06/21/24 @ 11:43 by Nadya Markham MD) Developmental delay, moderate Meningitis COVID-19 virus infection Surgical History Hx laparoscopic cholecystectomy Family History Maternal Grandfather Lung cancer Paternal Grandfather CVA (cerebral vascular accident) Social History Housing: House Alcohol intake: never Patient Tobacco Use Status: Never used Tobacco e-Cigarette/Vaping Use: Never Used service: No Current occupational status: disabled Cognitive needs: Yes (wheelchair ) Hearing needs: No Vision needs: No Questionnaire PHQ-9 Over the last 2 weeks, how often have you been bothered by any of the following problems? 1. Little interest or pleasure in doing things: not at all 2. Feeling down, depressed, or hopeless: not at all 3. Trouble falling or staying asleep, or sleeping too much: not at all 4. Feeling tired or having little energy: not at all 5. Poor appetite or overeating: not at all 6. Feeling bad about yourself - or that you are a failure or have let yourself or your family down: not at all 7. Trouble concentrating on things, such as reading the newspaper or watching television: not at all 8. Moving or speaking so slowly that other people could have noticed. Or the opposite - being so fidgety or restless that you have been moving around a lot more than usual: not at all 9. Thoughts that you would be better off or of hurting yourself in some way: not at all Total score: 0 Depression Screening Interpretation: Negative Depression Screening Done: Yes Source: Developed by Drs. Venkat Tijerina, Eloise Blanton, Vicente Acosta and colleagues, with an educational daily from [employer]. Thrive Questionnaire Date Thrive assessed: 10/27/24 I am a: Parent/Caregiver What is your living situation today?: I have a steady place to live Within the past 12 months, did the food you bought not last and you didn't have the money to get more?: Never true Within the past 12 months, did you worry whether your food would run out before you got money to buy more?: Never true Do you have trouble paying for medicines?: No Do you have trouble getting transportation to medical appointments?: No Do you have trouble paying your heating and electricity bill?: No Do you have trouble taking care of your child, family member or friend?: No Do you have trouble with day-to-day activities such as bathing, preparing meals, shopping, managing finances, etc.?: No Are you currently unemployed and looking for a job?: No Are you interested in more education?: No Please select the resources that you would like help with: None Currently or been in a relationship where the following occur: No concerns reported THRIVE Score: 0 AUDIT C Alcohol Use Questionnaire (AUDIT-C) 1. How often do you have a drink containing alcohol?: Never 3. How often do you have six or more drinks on one occasion?: Never Total Score: 0 KATHRYN-7 AMB Questionnaire KATHRYN-7 Date KATHRYN - 7 assessed: 10/27/24 Feeling nervous, anxious, or on edge: 0 = Not at all Not being able to stop or control worryin = Not at all Worrying too much about different things: 0 = Not at all Trouble relaxin = Not at all Being so restless that it is hard to sit still: 0 = Not at all Becoming easily annoyed or irritable: 0 = Not at all Feeling afraid as if something awful might happen: 0 = Not at all Total KATHRYN-7 score (0-4 normal; 5-9 mild; 10-14 moderate; 15-21 severe): 0 Source: Developed by Drs. Venkat Tijerina, Eloise Blanton, Vicente Acosta and colleagues, with an educational daily from [employer]. Physical exam (Primary Care) Vital Signs: Last Vital Signs Pulse 60 10/27/24 11:03 BP 110/72 10/27/24 11:03 Pulse Ox 98 10/27/24 11:03 Oxygen Delivery Method Room Air 10/27/24 11:03 BMI result Body Mass Index 30.7 Tobacco/Smoking Status: Tobacco use Status Tobacco use date assessed 10/27/24 10/27/24 11:05 Patient Tobacco Use Status Never used Tobacco 10/27/24 11:05 e-Cigarette/Vaping Use Never Used 10/27/24 11:05 PHQ-9: PHQ-9 Score PHQ-9: Total score 0 10/27/24 11:05 Depression Screening Interpretation: Negative Thrive Assessment: Date of Thrive Assessment Date Thrive assessed 10/27/24 10/27/24 11:05 Currently or been in a relationship where the following occur: No concerns reported Const General: alert; No acute distress Eyes Conjunctivae: conjunctivae normal Resp Auscultation: clear to auscultation bilaterally Cardio Rate: regular rate Rhythm: regular rhythm GI Inspection: Yes normal to inspection Neuro Other: adele based gait Coding Level of Care Code Est Pt Level 4 (92779) Diagnoses Developmental delay, moderate R62.50 Grand mal seizure G40.409 Obesity (BMI 30-39.9) E66.9 Seborrheic dermatitis L21.9 Assessment & Plan Assessment & Plan (1) Developmental delay, 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 - Encourage adherence to current lorazepam regimen for relaxation as necessary while considering potential dependency and need for periodic re-evaluation. - Recommend continued use of medicated shampoo for management of scalp dermatitis. - Advise cutting nails short to prevent exacerbation of skin lesions on the chin due to scratching. - Monitor dietary habits and ensure adequate nutrition to address recent weight loss. - Educate on hygiene and precautionary measures to prevent further skin irritation and lesion development. Medications: New lorazepam prn seizures 0.25 mg (1/2 x 0.5 mg) PO .QD PRN 12 tabs 0RF seizures G03.9 - Meningitis, unspecified, G40.409 - Other generalized epilepsy and epileptic syndromes, not intractable, without status epilepticus
[2024-10-27 11:03] VITALS: BP 110/72; PULSE 60; O2SAT 98; BMI 30.7
== END 2024-10-27 11:59 | disposition home or self-care (01) ==
PROVIDERS: PCP Internal Medicine; Visit Provider Internal Medicine
DX: R62.50 Unspecified lack of expected normal physiological development in childhood (principal); G40.409 Other generalized epilepsy and epileptic syndromes, not intractable, without status epilepticus; E66.9 Obesity, unspecified; Z68.30 Body mass index [BMI] 30.0-30.9, adult; L21.9 Seborrheic dermatitis, unspecified

== ENCOUNTER → 2024-10-27 10:58 | Outpatient (BNVA) | payer OTHER, MEDICAID, SELFPAY | PROVIDERS: PCP Internal Medicine; Visit Provider Internal Medicine ==

== ENCOUNTER 2025-05-18 12:49 | Outpatient (AMB) | payer MEDICAID, SELFPAY ==
--- OUTSIDE RECORDS SUMMARY | 2025-05-18 12:52 | XMS_ITS | Encounter Summary ---
Author Organization [facility] Address [address] [place] [id number] Phone Care Team Providers Care [employer] Dean Name Role Phone Sarah Godinez MD Primary Care Provider Encounter Details Date Type Department Care Team (Late st Contact Info) Description 01/14/2010 Documentation EM Family Medicine [address] [place] [address] Family Medicine, Physician [address] [place], [place] [id number] Social History Tobacco Use Types Packs/Day Years Used Date Smoking Tobacco: Never Assessed Comments Unknown Sex and Gender Information Value Date Recorded Sex Assigned at Not on file Legal Sex Female 4:40 PM EDT Gender Identity Not on file Sexual Orientation Not on file documented as of this encounter Plan of Treatment Not on file documented as of this encounter Visit Diagnoses Not on filedocumented in this encounter Care Teams [employer] Dean Relationship Specialty Start Date End Date Sarah Godinez MD [address] [place] [address] [place] [id number] PCP - General 05/28/17 03/18/23 documented as of this encounter
--- NOTE | 2025-05-18 13:02 | A.OFFPC_ITS ---
Vital Signs 05/18/25 13:03 Height 4 ft 8 in Weight 135 lb 2.294 oz BMI 30.3 BP 122/78 Blood Pressure Location Lt brachial Position Sitting Pulse 59 Pulse Source Pulse Oximeter Pulse Oximetry (%) 99 Oxygen Delivery Method Room Air Intake Visit Reasons: Annual Exam Medical Supervisor Required: No Accompanied by: Self / Same As Patient Allergies No Known Allergies Allergy (Verified 05/18/25 13:05) Medication List - Last Reconciled 05/18/25 by Sangita Abdi MD [large disposable diapers As directed] lorazepam 0.25 mg (1/2 x 0.5 mg) PO .QD PRN Tobacco use date assessed: 05/18/25 Dental Screening Dental Screen Date: 05/18/25 Did you have a dental visit in the last 12 months?: Yes Did you have a dental problem in the last 6 months where you did not have access to dental care?: No Was dental information given to patient?: Patient has dentist HPI Annual Exam HPI Details seizures since 1999 seeing neurology soon, no medonly lorazepam [facility] Medical History (Updated 05/18/25 @ 13:34 by Sangita Abdi MD) Developmental delay, moderate Meningitis COVID-19 virus infection Surgical History Hx laparoscopic cholecystectomy Family History Maternal Grandfather Lung cancer Paternal Grandfather CVA (cerebral vascular accident) Social History Housing: House Alcohol intake: never Patient Tobacco Use Status: Never used Tobacco e-Cigarette/Vaping Use: Never Used service: No Current occupational status: disabled Cognitive needs: Yes (wheelchair ) Hearing needs: No Vision needs: No Questionnaire PHQ-9 Over the last 2 weeks, how often have you been bothered by any of the following problems? 1. Little interest or pleasure in doing things: not at all 2. Feeling down, depressed, or hopeless: not at all 3. Trouble falling or staying asleep, or sleeping too much: not at all 4. Feeling tired or having little energy: not at all 5. Poor appetite or overeating: not at all 6. Feeling bad about yourself - or that you are a failure or have let yourself or your family down: not at all 7. Trouble concentrating on things, such as reading the newspaper or watching television: not at all 8. Moving or speaking so slowly that other people could have noticed. Or the opposite - being so fidgety or restless that you have been moving around a lot more than usual: not at all 9. Thoughts that you would be better off or of hurting yourself in some way: not at all Total score: 0 Depression Screening Interpretation: Negative Depression Screening Done: Yes Source: Developed by Drs. Venkat Tijerina, Eloise Blanton, Vicente Acosta and colleagues, with an educational daily from [employer]. Thrive Questionnaire Date Thrive assessed: 05/18/25 I am a: Parent/Caregiver What is your living situation today?: I have a steady place to live Within the past 12 months, did the food you bought not last and you didn't have the money to get more?: Never true Within the past 12 months, did you worry whether your food would run out before you got money to buy more?: Never true Do you have trouble paying for medicines?: No Do you have trouble getting transportation to medical appointments?: No Do you have trouble paying your heating and electricity bill?: No Do you have trouble taking care of your child, family member or friend?: No Do you have trouble with day-to-day activities such as bathing, preparing meals, shopping, managing finances, etc.?: No Are you currently unemployed and looking for a job?: No Are you interested in more education?: No Please select the resources that you would like help with: None Currently or been in a relationship where the following occur: No concerns reported THRIVE Score: 0 AUDIT C Alcohol Use Questionnaire (AUDIT-C) 1. How often do you have a drink containing alcohol?: Never 3. How often do you have six or more drinks on one occasion?: Never Total Score: 0 KATHRYN-7 AMB Questionnaire KATHRYN-7 Date KATHRYN - 7 assessed: 05/18/25 Feeling nervous, anxious, or on edge: 0 = Not at all Not being able to stop or control worryin = Not at all Worrying too much about different things: 0 = Not at all Trouble relaxin = Not at all Being so restless that it is hard to sit still: 0 = Not at all Becoming easily annoyed or irritable: 0 = Not at all Feeling afraid as if something awful might happen: 0 = Not at all Total KATHRYN-7 score (0-4 normal; 5-9 mild; 10-14 moderate; 15-21 severe): 0 Source: Developed by Drs. Venkat Tijerina, Eloise Blanton, Vicente Acosta and colleagues, with an educational daily from [employer]. Review of Systems Const Denies poor appetite and Denies weakness Eyes Denies no additional complaints ENT Reports Normal hearing present, Denies dizziness, Denies nasal congestion, Denies tinnitus and Denies sore throat Card Denies chest pain, Denies syncope, Denies rapid heart rate and Denies dyspnea Resp Denies cough and Denies dyspnea GI Denies change in stool character, Reports constipation, Denies diarrhea, Denies nausea and Denies vomiting Denies urinary frequency, Denies difficulty voiding and Denies dysuria Neuro Reports Normal hearing present, Denies confusion, Denies dizziness, Denies syncope and Denies weakness Psych Denies confusion Physical exam (Primary Care) Vital Signs: Last Vital Signs Pulse 59 05/18/25 13:03 BP 122/78 05/18/25 13:03 Pulse Ox 99 05/18/25 13:03 Oxygen Delivery Method Room Air 05/18/25 13:03 Care Plan Goal for BP management: Patient walks with the help of father BMI result Body Mass Index 30.3 Tobacco/Smoking Status: Tobacco use Status Tobacco use date assessed 05/18/25 05/18/25 13:14 Patient Tobacco Use Status Never used Tobacco 05/18/25 13:14 e-Cigarette/Vaping Use Never Used 05/18/25 13:14 PHQ-9: PHQ-9 Score PHQ-9: Total score 0 05/18/25 13:26 Depression Screening Interpretation: Negative Thrive Assessment: Date of Thrive Assessment Date Thrive assessed 05/18/25 05/18/25 13:14 Currently or been in a relationship where the following occur: No concerns reported Const General: No confusion Orientation/consciousness: No confusion HENMT Other: impacted cerumen bilateral Head: Yes normocephalic Ears: external ears normal Face and sinus: Yes normal facial exam Mouth: moist mucous membranes Throat: Yes tonsils normal Eyes Conjunctivae: conjunctivae normal Pupils: Equal, round and reactive pupils present and Pupil accommodation reflex normal Direct Ophthalmoscopy: normal light reflex Neck Neck: No lymphadenopathy Thyroid: Thyroid normal Chest Chest palpation & inspection: normal inspection of the chest Resp Effort & Inspection: normal respiratory effort and no audible wheezes Auscultation: clear to auscultation bilaterally, no crackles, no wheezes and lung sounds not diminished Cardio Rate: regular rate Rhythm: regular rhythm Peripheral pulses: radial pulses present and dorsalis pedis present GI Palpation (GI): no masses Auscultation: normal bowel sounds and normoactive bowel sounds Rectal Exam - Female: deferred Back/Spine/Pelvis Other: valgus deformity of the feet bilateral can only elevate legs 20 degrees Skin General skin exam: no rashes or lesions noted Rashes: no rashes Neuro General: No confusion Cranial nerves: Yes Equal, round and reactive pupils present and Yes Normal hearing present Cognition (Neuro): normal cognition Gait exam (Neuro): Normal gait present Motor exam (neuro): 5/5 motor strength present throughout Deep tendon reflexes (DTR's): Right brachioradialis reflex intensity grade: 2+, Left brachioradialis reflex intensity grade: 2+, Right patellar reflex intensity grade: 2+ and Left patellar reflex intensity grade: 2+ Extrem General: No edema Office Procedures Cerumen Removal From which ear canal was the cerumen removed: bilateral Removal: otoscope w/curette and cerumen loop/spoon Notes: patient tolerated procedure well, no complications and ear canal clear [id number] Wax Removal by Spoon/Curette Coding Level of Care Code Est Pt Prev Care 18-39y(22497) Diagnoses Annual physical exam Z00.00 Developmental delay, moderate R62.50 Grand mal seizure G40.409 Obesity (BMI 30-39.9) E66.9 Impacted cerumen of both ears H61.23 CPT Codes Office Procedure - CPT: [id number]-[id number] Wax Removal by Spoon/Curette ([id number]) Assessment & Plan Assessment & Plan (1) Annual physical exam: Code(s): Z00.00 - Encounter for general adult medical examination without abnormal findings Category: Medical Plan: Patient is advised to eat healthy, keep well hydrated, keep active and have adequate sleep. 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 Code(s): R62.50 - Unspecified lack of expected normal physiological development in childhood Category: Medical Plan: Supportive treatment (3) Grand mal seizure: Code(s): G40.409 - Other generalized epilepsy and epileptic syndromes, not intractable, without status epilepticus Category: Medical Plan: patient is seeing neurology (4) Obesity (BMI 30-39.9): Code(s): E66.9 - Obesity, unspecified Category: Medical Plan: Diet and exercise (5) Impacted cerumen of both ears: Code(s): H61.23 - Impacted cerumen, bilateral Category: Medical Plan: no irrigation , scoop used TM intact Plan History of Present Illness The patient is a 35-year-old female presenting for an annual physical examination. She has a history of obesity, developmental delay, and seizure disorder, with seizures occurring every three to six months. The patient also has a valgus deformity of the foot and experiences rectal incontinence. She is legally blind and requires assistance with mobility, often walking with the help of her father. Previous blood work indicated normal blood count, electrolytes, renal function, and thyroid levels, but triglycerides were slightly elevated, and vitamin D levels were low. The patient had knee x-rays last year, which showed no fractures. Health Maintenance - Annual physical examination - Discussion of diet and exercise for weight management - Recommendation for adequate hydration - Consideration of vitamin D supplementation due to deficiency - Monitoring of triglyceride levels - Vaccination discussion, including tetanus shot Social History - Mobility: Patient requires assistance with walking, often aided by her father. - Exercise: Engages in exercise as part of weight management. Review of Systems - Neurological: Reports seizures occurring every three to six months. Denies dizziness or balance issues. - Gastrointestinal: Reports rectal incontinence. Denies nausea, vomiting, or constipation. - Respiratory: Denies dyspnea or chest pain. - Genitourinary: Denies urinary issues, but frequency of nocturia is unknown. Physical Exam General: Cooperative, healthy appearing, comfortable, no acute distress and well developed Orientation: Patient oriented x3 Limitations: Patient walks with the help of father Head: Normal to inspection Ears: Hearing grossly normal bilaterally, but blocked with ear wax Nose: Normal external nose present Face and sinus: Normal facial exam Eyes: Legally blind Neck: Normal visual inspection and Yes full ROM Respiratory: Normal respiratory effort and able to speak in complete sentences. Clear to auscultation bilaterally Cardiovascular: Regular rate and rhythm. Normal S1 and S2 GI: Normal to inspection. Soft to palpation and nontender Skin: No rashes or lesions noted Neuro: Patient oriented x3 Extremities: Patient has valgus deformity Results - Labs: Normal blood count, electrolytes, renal function, and thyroid levels. Elevated triglycerides and low vitamin D levels. - Imaging: Knee x-rays showed no fractures. Plan The plan for the patient includes continued monitoring of her seizure disorder, with a neurology appointment scheduled for further evaluation. Diet and exercise are emphasized for weight management, and vitamin D supplementation is considered due to deficiency. Triglyceride levels will be monitored, and a discussion regarding vaccinations, including a tetanus shot, was conducted. Patient was informed and verbally consented to the use of an ambient scribe for clinic note documentation during this visit. Discussion Notes During the visit, I discussed the importance of maintaining a healthy diet and regular exercise to manage weight and improve overall health. We also talked about the need for vitamin D supplementation due to low levels and the monitoring of triglyceride levels. I recommended considering vaccinations, including a tetanus shot, and emphasized the importance of follow-up with neurology for seizure management. Patient Instructions - Continue with regular exercise and maintain a healthy diet. - Consider taking vitamin D supplements as discussed. - Monitor triglyceride levels as advised. - Follow up with neurology for seizure management. - Discuss vaccination options, including tetanus shot, with your healthcare provider.
[2025-05-18 13:03] VITALS: BP 122/78; PULSE 59; O2SAT 99; BMI 30.3
== END 2025-05-18 13:43 | disposition home or self-care (01) ==
LOC: HO.HMCH 12:50
PROVIDERS: PCP Internal Medicine; Visit Provider Internal Medicine
DX: Z00.00 Encounter for general adult medical examination without abnormal findings (principal); G40.409 Other generalized epilepsy and epileptic syndromes, not intractable, without status epilepticus; E66.9 Obesity, unspecified; Z68.30 Body mass index [BMI] 30.0-30.9, adult; H61.23 Impacted cerumen, bilateral; R62.50 Unspecified lack of expected normal physiological development in childhood

== ENCOUNTER → 2025-05-18 12:49 | Outpatient (BNVA) | payer MEDICAID, SELFPAY | PROVIDERS: PCP Internal Medicine; Visit Provider Internal Medicine | DX: Z00.00 Encounter for general adult medical examination without abnormal findings (principal); R62.50 Unspecified lack of expected normal physiological development in childhood; G40.409 Other generalized epilepsy and epileptic syndromes, not intractable, without status epilepticus; E66.9 Obesity, unspecified; Z68.30 Body mass index [BMI] 30.0-30.9, adult; H61.23 Impacted cerumen, bilateral; Z13.31 Encounter for screening for depression; Z13.39 Encounter for screening examination for other mental health and behavioral disorders | CPT/HCPCS: 69210; 99395 ==

== ENCOUNTER 2025-06-04 08:47 | Outpatient (AMB) | payer MEDICAID, SELFPAY ==
--- NOTE | 2025-06-04 08:48 | A.OFFVIS_ITS ---
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 she is accompanied by her mother .she had 3 seizures since her last visit. The seizures start with staring eye deviation to left tonic posturing lasting 1-2 min followed by post ictal fatigue . she gets lorazepam as needed. Mother concerned about giving her daily antiepileptics. 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 she has psychomotor delay- still needs assistance to walk, speech delay , she can communicate .she cannot read or write. she went to a special program. she can eat , can communicates with family members , she is social, needs help with showers, dressing and most ADLs. she denies behavior issues- according to her mother- she is like a16 year old she is legally blind and has strabismus she is incontinent.. she uses her tablet, loves music, plays legos, watches you tube, like to play with baby dolls, cars etc. She started having seizures in 1999- generalized tonic clonic seizures. Triggers - include menstrual periods, playing video games, bright sun etc. Her frequency is from 1-9 a year since then Her last seizure was May 2024. she uses lorazepam PRN.The mother declined any other antiepileptics in the past. [facility] Medical History Developmental delay, moderate Meningitis COVID-19 virus infection Surgical History Hx laparoscopic cholecystectomy Family History Maternal Grandfather Lung cancer Paternal Grandfather CVA (cerebral vascular accident) Social History Housing: House Alcohol intake: never Patient Tobacco Use Status: Never used Tobacco e-Cigarette/Vaping Use: Never Used service: No Current occupational status: disabled Cognitive needs: Yes (wheelchair ) Hearing needs: No Vision needs: No Physical Exam Vital Signs: Last Vital Signs Pulse 69 06/04/25 08:49 BP 126/82 06/04/25 08:49 Pulse Ox 99 06/04/25 08:49 Oxygen Delivery Method Room Air 06/04/25 08:49 Const General: cooperative and comfortable Nutritional Appearance: overweight Orientation/consciousness: oriented to person Neuro Other: follows 1-2 step commands EOM- strabismus Face symmetrical Fine finger coordination - decreased , mild athetotic movements Angelo feet turned inwards with decreased tone Power- 3/5 LE UE 4/5 Gait- unable to walk General: oriented to person, tone normal and moves all extremities Results Reviewed Results Reviewed: 07/2024 EEG correlates slowing related to a diffuse encephalopathic process and shows some paroxysmal features with bifrontal paroxysmal delta and occasional lateralization of sharp waves in the right central region, which could correlate with the seizure disorder. 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
[2025-06-04 08:49] VITALS: BP 126/82; PULSE 69; O2SAT 99
--- OUTSIDE RECORDS SUMMARY | 2025-06-04 09:11 | XMS_ITS | Encounter Summary ---
Author Organization [facility] Address [address] [place] [address] Phone Care Team Providers Care Enrollment Services Vice President Name Role Phone Sarah Godinez MD Primary Care Provider [phone] Encounter Details Date Type Department Care Team (Late st Contact Info) Description 01/14/2010 Documentation EM Family Medicine [address] [place] [address] Family Medicine, Physician [address] [place], [place] [phone] Social History Tobacco Use Types Packs/Day Years [...] on filedocumented in this encounter Care Teams Enrollment Services Vice President Relationship Specialty Start Date End Date Sarah Godinez MD [address] [place] [address] [place] [address] PCP - General 05/28/17 03/18/23 documented as of this encounter
== END 2025-06-04 09:23 | disposition home or self-care (01) ==
LOC: HO.HSMS 08:47
PROVIDERS: PCP Internal Medicine; Visit Provider Psychiatry & Neurology Neurology
DX: G40.409 Other generalized epilepsy and epileptic syndromes, not intractable, without status epilepticus (principal); R62.50 Unspecified lack of expected normal physiological development in childhood
CPT/HCPCS: 99214

== ENCOUNTER → 2025-06-04 08:47 | Outpatient (BNVA) | payer MEDICAID, SELFPAY | PROVIDERS: PCP Internal Medicine; Visit Provider Psychiatry & Neurology Neurology | DX: G40.409 Other generalized epilepsy and epileptic syndromes, not intractable, without status epilepticus (principal); R62.50 Unspecified lack of expected normal physiological development in childhood | CPT/HCPCS: 99212 ==

== ENCOUNTER 2025-08-14 16:19 | Emergency (ER) | payer MEDICAID, SELFPAY ==
--- NOTE | ~2025-08-14 | CT_ITS ---
CLINICAL HISTORY: trauma CT cervical spine without contrast Comparison: None provided Findings: Straightening of the normal cervical lordosis. No significant degenerative change. No acute fractures or dislocations. Visualized intracranial contents are unremarkable. Soft tissues of the neck are normal. Lung apices are clear. IMPRESSION: No acute findings. This document has been electronically signed by: Lynette Matute MD on 08/14/2025 21:35:04
--- NOTE | ~2025-08-14 | CT_ITS ---
CLINICAL HISTORY: trauma CT head without contrast Comparison: None provided Findings: No intra-axial mass, midline shift, hydrocephalus, or acute hemorrhage. Moderate cerebral atrophy. Bifrontal and bilateral posterior parieto-occipital lobes extensive encephalomalacia which could be related to remote trauma. The visualized paranasal sinuses and mastoid air cells are normal. The orbits are within normal limits. There is no acute fracture. IMPRESSION: 1. No acute intracranial findings specifically, no acute intracranial hemorrhage. 2. Extensive bifrontal and bilateral parieto-occipital lobes encephalomalacia, likely related to remote trauma. This document has been electronically signed by: Lynette Matute MD on 08/14/2025 21:40:06
[2025-08-14 16:35] VITALS: BP 165/92; PULSE 69; RESP 16; TEMP 36.3; O2SAT 100; BMI 33.4
[2025-08-14 16:41] VITALS: BP 165/92; PULSE 69; RESP 16; TEMP 36.3; O2SAT 100
[2025-08-14 17:57] VITALS: BP 137/79; PULSE 75; RESP 14; TEMP 36.4; O2SAT 100
--- NOTE | 2025-08-14 20:11 | PC.NURSE ---
pt resting comfortably at this time. parents at bedside. no apparent distress noted. C collar in place from EMS
--- OUTSIDE RECORDS SUMMARY | 2025-08-14 20:16 | XMS_ITS | Encounter Summary ---
Author Organization [facility] Address [address] [place] [address] Phone Care Team Providers Care Milanese Knitting Machine Operator Name Role Phone Sarah Godinez MD Primary Care Provider Encounter Details Date Type Department Care Team (Late st Contact Info) Description 01/14/2010 Documentation EM Family Medicine [address] [place] [address] Family Medicine, Physician [address] [place], [place] [phone] Social History Tobacco Use Types Packs/Day Years [...] on filedocumented in this encounter Care Teams Milanese Knitting Machine Operator Relationship Specialty Start Date End Date Sarah Godinez MD [address] [place] [address] [place] [address] PCP - General 05/28/17 03/18/23 documented as of this encounter
--- OUTSIDE RECORDS SUMMARY | 2025-08-14 20:16 | XMS_ITS | Encounter Summary ---
Author Organization [facility] Address [address] [place] [address] Phone Care Team Providers Care Antisqueak Applier Name Role Phone Sarah Godinez MD Primary Care Provider [phone] Encounter Details Date Type Department Care Team (Late st Contact Info) Description 02/04/2010 Documentation EM Family Medicine [address] [place] [address] Family Medicine, Physician [address] [place], [place] [phone] Social History Tobacco Use Types Packs/Day Years [...] on filedocumented in this encounter Care Teams Antisqueak Applier Relationship Specialty Start Date End Date Sarah Godinez MD [address] [place] [address] [place] [address] PCP - General 05/28/17 03/18/23 documented as of this encounter
--- OUTSIDE RECORDS SUMMARY | 2025-08-14 20:16 | XMS_ITS | Clinical Summary ---
Author Organization [facility] Address [address] [place] [address] Care Team Providers Care Advertising Rep Name Role Phone Unavailable Primary Care Provider Unavailabl e Encounters Date Type Department Care Team Description 08/07/2025 Population Health Risk Score [facility] (C3) Department [address] [facility] [address] [place] [id number] Provider, Population Health Generic from Last 3 Months Social History Tobacco Use Types Packs/Day Years Used Date Smoking Tobacco: Never Assessed Comments Unknown Sex and Gender Information Value Date Recorded Sex Assigned at Not on file Legal Sex Female 2:20 AM EDT Gender Identity Not on file Sexual Orientation Not on file Plan of Treatment Health Maintenance Due Date Last Done Comments Depression Screening 1990 HIV Screening 1990 SDOH Screening 1990 Disability Screening 1990 Alcohol/Substance Use Screening 2002 Tobacco Screening 2002 Family Planning (PISQ) 2005 HPV Vaccines (1 - 3-dose series) 2005 Hepatitis C Screening 02/24/2008 DTaP/Tdap/Td Vaccines (1 - Tdap) 2009 Hepatitis B Vaccines (1 of 3 - 19+ 3-dose series) 2009 Pap Smear 2011 Cervical Cancer Screening 02/24/2020 HPV/Cotest 02/24/2020 COVID-19 Vaccine (1 - 2023-2 5 season) 2025 Influenza Vaccine (#1) 2025 Zoster Vaccines (1 of 2) 02/24/2040 RSV Patients and Pa tients Aged 60 years or older (1 - 1-dose 75+ series) 2065 HIB Vaccines Aged Out No longer eligi ble based on patient's age to complete this topic Hepatitis A Vaccines Aged Out No long er eligible based on patient's age to complete this topic IPV Vaccines Aged Out No longer eligi ble based on patient's age to complete this topic Meningococcal B Vaccine Aged Out No l onger eligible based on patient's age to complete this topic Meningococcal Vaccine Aged Out No poornima felipe eligible based on patient's age to complete this topic Pneumococcal Vaccine: Pediat rics (0 to 5 Years) and At-Risk Patients (6 to 49) Years Aged Out No longer eligible b ased on patient's age to complete this topic RSV under 20 months Aged Out No longe r eligible based on patient's age to complete this topic Rotavirus Vaccines Aged Out No longer eligible based on patient's age to complete this topic
--- OUTSIDE RECORDS SUMMARY | 2025-08-14 20:16 | XMS_ITS | Encounter Summary ---
Author Organization [facility] Address [address] [place] [address] Phone Care Team Providers Care Cryptological Technician Name Role Phone Sarah Godinez MD Primary Care Provider [phone] Encounter Details Date Type Department Care Team (Late st Contact Info) Description 01/14/2010 Documentation EM Family Medicine [address] [place] [address] Family Medicine, Physician [address] [place], [place] [phone] Social History Tobacco Use Types Packs/Day Years [...] on filedocumented in this encounter Care Teams Cryptological Technician Relationship Specialty Start Date End Date Sarah Godinez MD [address] [place] [address] [place] [address] PCP - General 05/28/17 03/18/23 documented as of this encounter
--- OUTSIDE RECORDS SUMMARY | 2025-08-14 20:17 | XMS_ITS | Encounter Summary ---
Author Organization [facility] Address [address] [place] [address] Phone Care Team Providers Care Machine Guide Base Winder Name Role Phone Sarah Godinez MD Primary Care Provider [phone] Encounter Details Date Type Department Care Team (Late st Contact Info) Description 06/03/2017 Conversion Encounter [facility] [place] [address] [place] [address] Social History Tobacco Use Types Packs/Day Years [...] on filedocumented in this encounter Care Teams Machine Guide Base Winder Relationship Specialty Start Date End Date Sarah Godinez MD [address] [place] [address] PCP - General 05/28/17 03/18/23 documented as of this encounter
--- OUTSIDE RECORDS SUMMARY | 2025-08-14 20:17 | XMS_ITS | Encounter Summary ---
Author Organization [facility] Address [address] [place] [address] Phone Care Team Providers Care Financial Aid Officer Name Role Phone Sarah Godinez MD Primary Care Provider Encounter Details Date Type Department Care Team (Late st Contact Info) Description 10/14/2010 Documentation EM Family Medicine [address] [place] [address] Family Medicine, Physician [address] [place], [place] [phone] Social History Tobacco Use Types Packs/Day Years [...] on filedocumented in this encounter Care Teams Financial Aid Officer Relationship Specialty Start Date End Date Sarah Godinez MD [address] [place] [address] [place] [address] PCP - General 05/28/17 03/18/23 documented as of this encounter
--- OUTSIDE RECORDS SUMMARY | 2025-08-14 20:17 | XMS_ITS | Clinical Summary ---
Author Organization [facility] Address [address] [place] [address] Phone Care Team Providers Care Furnishings Conservator Name Role Phone Unavailable Primary Care Provider Unavailabl e Immunizations Immunization Administration Dates Next Due DTP 03/12/1995, 2,1990,08/04,1990 H1N1 08/15/2009 HPV, Quadrivalent 08/15/2009,02/18/2009,12/19/19 09 Hep B, ped/adol 10/24/1998,08/14/1998,05/28/1998 Hib (PRP-T) 12/15/1991,02/28/1991 Influenza Split 01/02/2011 MMR 01/03/1994,02/28/1991 Meningococcal Conj (Menactra) MCV4P 03/22/2007 OPV 03/12/1995, 2,1990,05/26 Td (adult) (MBL), 2 Lf tetan us toxoid, PF, adsorbed 11/09/2001 Tdap 12/18/2008 Family History Relation Name Status Comments Brother Alive Brother: Alive and well Cousin 1 Cousin: ADD/ADH D, Migraines, Autism Cousin 2 Cousin: ADD/ADH D, Migraines, Autism Cousin 3 Cousin: ADD/ADH D, Migraines, Autism Father Alive Father: Alive a nd well Mother Alive Mother: Alive a nd well Other 1 Grandfather: El evated cholesterol, Diabetes mellitus Other 2 Aunt: Migraines Sister Alive Sister: Alive a nd well Social History Tobacco Use Types Packs/Day Years Used Date Smoking Tobacco: Never Assessed Comments Unknown Sex and Gender Information Value Date Recorded Sex Assigned at Not on file Legal Sex Female 4:40 PM EDT Gender Identity Not on file Sexual Orientation Not on file Last Filed Vital Signs Vital Sign Reading Time Taken Comments Blood Pressure 116/70 01/02/2011 12:00 AM EDT Pulse - - Temperature 36.4 C (97.5 F) 11/11/2010 12:00 AM EST Respiratory Rate - - Oxygen Saturation - - Inhaled Oxygen Concentration - - Weight 59 kg (130 lb) 01/02/2011 12:00 AM EDT Height 134.1 cm (4' 4.8 ) 01/02/2011 12:00 AM ED T Body Mass Index 32.79 01/02/2011 12:00 AM EDT Plan of Treatment Health Maintenance Due Date Last Done Comments Varicella Vaccines (1 of 2 - 13+ 2-dose series) 2003 DTaP,Tdap,and Td Vaccines (7 - Td or Tdap) 12/18/2018 12/18/2008, 11/09/2001, 03/12/1995, Additional history exists Influenza Vaccines (#1) 2025 01/02/2011 COVID-19 Vaccine (2024- season) 2025 HIB Vaccines Completed 12/15/1991, 02/28/1991 MMR Vaccines Completed 01/03/1994, 02/28/1991 IPV Vaccines Completed 03/12/1995, 11/19, 1990, Additional history exists Hepatitis B Vaccines Completed 10/24/1998, 08/14/1998, 05/28/1998 Meningococcal Vaccine Completed 03/22/2007 HPV Vaccines Completed 08/15/2009, 01/2009, 12/18/2008 Hepatitis A Vaccines Aged Out No long er eligible based on patient's age to complete this topic Men B Vaccine Aged Out No longer elig ible based on patient's age to complete this topic Pneumococcal Vaccine Aged Out No long er eligible based on patient's age to complete this topic
--- OUTSIDE RECORDS SUMMARY | 2025-08-14 20:17 | XMS_ITS | Encounter Summary ---
Author Organization [facility] Address [address] [place] [address] Phone Care Team Providers Care Self Propelled Mining Machine Operator Name Role Phone Sarah Godinez MD Primary Care Provider Encounter Details Date Type Department Care Team (Late st Contact Info) Description 01/05/2011 Documentation [facility] [place] [facility] [address] [place] [address] Family Medicine, Physician [address] [place], [place] [phone] Social History Tobacco Use Types Packs/Day Years [...] on filedocumented in this encounter Care Teams Self Propelled Mining Machine Operator Relationship Specialty Start Date End Date Sarah Godinez MD [address] [place] [address] [place] [id number] PCP - General 05/28/17 03/18/23 documented as of this encounter
--- NOTE | 2025-08-14 20:49 | PC.NURSE ---
assist with removing wet brief, natalia care done. clean pad and gown in place. pt tolerated well. C collar remains in place
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
[2025-08-14 21:54] VITALS: BP 149/90; PULSE 65; RESP 18; TEMP 36.6; O2SAT 100
[2025-08-14 22:08] VITALS: BP 149/90; PULSE 65; RESP 18; TEMP 36.6; O2SAT 100
== END 2025-08-14 22:10 | disposition home or self-care (01) ==
PROVIDERS: Emergency Provider Emergency Medicine; PCP Internal Medicine
DX: R51.9 Headache, unspecified (principal); M54.2 Cervicalgia; R62.59 Other lack of expected normal physiological development in childhood; G40.909 Epilepsy, unspecified, not intractable, without status epilepticus; G93.89 Other specified disorders of brain; Z99.3 Dependence on wheelchair; Z79.899 Other long term (current) drug therapy; V59.88XA Occupant (driver) (passenger) of pick-up truck or van injured in other specified transport accidents, initial encounter; Y93.89 Activity, other specified; Y92.89 Other specified places as the place of occurrence of the external cause; Y99.8 Other external cause status
CPT/HCPCS: 70450; 72125; 99284

== ENCOUNTER → 2025-08-14 20:08 | Outpatient (BNV) | payer MEDICAID, SELFPAY | PROVIDERS: Emergency Provider Emergency Medicine; PCP Internal Medicine; Visit Provider Student in an Organized Health Care Education/Training Program | DX: S09.90XA Unspecified injury of head, initial encounter (principal); W05.0XXA Fall from non-moving wheelchair, initial encounter | CPT/HCPCS: 70450; 72125 ==